=== PATIENT | female | born 1930 | race Caucasian/White ===

== ENCOUNTER → 2017-02-14 | Outpatient (REF) | payer MEDICARE, OTHER ==
[2017-02-14 17:52] LABS: PERCENT SATURATION 15.7 % (13.2-37.4)
== END ==
LOC: M LAB REF 17:01
PROVIDERS: ATTEND Internal Medicine
DX: D64.9 Anemia, unspecified (principal)

== ENCOUNTER → 2018-03-29 | Outpatient (REF) | payer MEDICARE, OTHER ==
[2018-03-29 13:14] LABS: VITAMIN B12 LEVEL 560 PG/ML (247-911)
== END ==
LOC: M LAB REF 12:05
DX: G60.9 Hereditary and idiopathic neuropathy, unspecified (principal)
CPT/HCPCS: 82607